=== PATIENT | female | born 1965 | race Caucasian/White ===

== ENCOUNTER 2022-09-02 13:14 | Emergency (ER) | payer MEDICARE, OTHER ==
[~2022-09-02] VITALS: Ht 167.6 cm; Wt 79.0 kg
[2022-09-02] MEDS ORDERED: LIDOCAINE HCL/PF 1% 10 MG/ML 5ML VIAL INFIL ONE (17:00)
[2022-09-02] MEDS ORDERED: BACITRACIN ZINC OINT UDPKT TOP ONE (17:00)
[2022-09-02] MEDS ORDERED: IBUPROFEN 600MG TABLET PO STA (17:03)
[2022-09-02] MEDS ORDERED: KETOROLAC 60MG/2ML VIAL IM STA (17:55)
[2022-09-02 18:03] VITALS: BP 141/80
[2022-09-02] MEDS ORDERED: IBUP-2029 PO (18:49)
[2022-09-02] MEDS ORDERED: HYDR-4001 PO (19:21)
== END 2022-09-02 19:50 | disposition home or self-care (01) ==
LOC: ER 13:14
DX: S62.652A Nondisplaced fracture of middle phalanx of right middle finger, initial encounter for closed fracture (principal); S61.214A Laceration without foreign body of right ring finger without damage to nail, initial encounter; K50.90 Crohn's disease, unspecified, without complications; M79.7 Fibromyalgia; Z86.011 Personal history of benign neoplasm of the brain; W22.8XXA Striking against or struck by other objects, initial encounter; Y93.89 Activity, other specified; Y92.810 Car as the place of occurrence of the external cause
CPT/HCPCS: 73140; 96372; 99283; J1885; J3490